=== PATIENT | female | born 1990 | race Caucasian/White ===

== ENCOUNTER 2018-01-16 12:11 | Emergency (ER) | payer OTHER ==
[2018-01-16 14:52] LABS: URINE PH (Dip) POC 5.5 (5.0-8.5)
[2018-01-16 14:52] LABS: URINE BLOOD (Dip) POC 1+ (NEGATIVE); URINE GLUCOSE (Dip) POC Negative (NEGATIVE); URINE KETONES (Dip) POC Negative (NEGATIVE); URINE LEUKOCYTE EST (Dip) POC Negative (NEGATIVE); URINE NITRITE (Dip) POC Negative (NEGATIVE); URINE TOTAL PROTEIN POC Negative (NEGATIVE)
[2018-01-16] MEDS: KETOROLAC 30 MG INJ IV (14:54)
[2018-01-16] MEDS: SOD CHLORIDE 0.9% 1,000 ML IV (16:59)
== END 2018-01-16 17:40 | disposition home or self-care (01) ==
LOC: FTE 12:11
DX: M54.5 Low back pain (principal)
CPT/HCPCS: 72149; 81003; 93005; 96374; 99284-25